=== PATIENT | male | born 1990 | race African-American/Black ===

== ENCOUNTER 2016-12-11 00:44 | Emergency (ER) | payer OTHER ==
[~2016-12-11 00:44] MED LIST: IBUPROFEN PO; NO MEDICATIONS
== END 2016-12-11 00:49 | disposition home or self-care (01) ==
LOC: SED 00:44
DX: R11.2 Nausea with vomiting, unspecified (principal); R19.7 Diarrhea, unspecified; F17.200 Nicotine dependence, unspecified, uncomplicated
CPT/HCPCS: 99282

== ENCOUNTER 2017-05-26 13:09 | Emergency (ER) | payer OTHER | END 2017-05-26 14:18 | disposition home or self-care (01) | LOC: SED 13:09 | DX: J01.90 Acute sinusitis, unspecified (principal); F17.200 Nicotine dependence, unspecified, uncomplicated | CPT/HCPCS: 87651; 99284 ==